=== PATIENT | male | born 1960 | race Caucasian/White ===

== ENCOUNTER 2017-07-27 08:51 | Day surgery (SDC) | payer BC ==
[~2017-07-27] VITALS: Ht 177.8 cm; Wt 88.0 kg
[~2017-07-27 08:51] MED LIST: AMIT25 PO; COMPLETE ALLERG PO; FISH OIL 1,2001 EAC1 PO; MIRT15 PO; SUPER B-COMPL400 MCG PO; VITAMIN D35000 UNIT PO
[2017-10-14] MEDS ORDERED: SUPER B-COMPL400 MCG PO (08:19)
[2017-10-14] MEDS ORDERED: VITAMIN D35000 UNIT PO (08:19)
[2017-10-14] MEDS ORDERED: Allergy Medicin25 MG PO (08:21)
== END 2017-07-27 11:19 | disposition home or self-care (01) ==
LOC: ORSCSDS 08:51
PROVIDERS: Internal Medicine Gastroenterology
PROC: 0DJD8ZZ Inspection of Lower Intestinal Tract, Via Natural or Artificial Opening Endoscopic (ICD-10-PCS; principal; 2017-07-27 10:00)
DX: Z86.010 Personal history of colon polyps (principal); K64.8 Other hemorrhoids; Z83.71 Family history of colonic polyps; Z79.82 Long term (current) use of aspirin

== ENCOUNTER 2017-10-18 06:14 | Day surgery (SDC) | payer BC ==
[~2017-10-18] VITALS: Ht 177.8 cm; Wt 88.7 kg
[~2017-10-18 06:14] MED LIST changes: +Allergy Medicin25 MG PO
== END 2017-10-18 10:18 | disposition home or self-care (01) ==
LOC: ORSCSDS 06:14
PROVIDERS: Orthopaedic Surgery
PROC: 0SBC4ZZ Excision of Right Knee Joint, Percutaneous Endoscopic Approach (ICD-10-PCS; principal; 2017-10-18 07:30)
DX: S83.241A Other tear of medial meniscus, current injury, right knee, initial encounter (principal); S83.281A Other tear of lateral meniscus, current injury, right knee, initial encounter
CPT/HCPCS: 93005; 93010; J0171; J0690; J2250; J2405; J3010; J7120

== ENCOUNTER 2019-05-18 08:32 | Day surgery (SDC) | payer BC ==
[~2019-05-18] VITALS: Ht 177.8 cm; Wt 87.0 kg
[~2019-05-18 08:32] MED LIST changes: +OMEP20ER PO
--- NOTE | 2019-05-18 09:41 | NUR ---
05/18/19 0941 [place] Joy History, Chart, Medications and Allergies reviewed before start of procedure.MONITOR INTACT WITH CONTINUOUS PULSE OXIMETRY AND INTERMITTENT BP.3-LEAD EKG REVIEWED WITH PHYSICIAN PRIOR TO START OF PROCEDURE.O2 VIA N/C INTACT THROUGHOUT SEDATION/PROCEDURE. Patient confirms NPO status and agrees with scheduled surgery.HURRICAINE SPRAY TO OROPHARYX.Bite Block Placed.Patient to ENDO 1.
--- NOTE | 2019-05-18 09:49 | NUR ---
Ambulatory in Day Surgery. History, Chart, Medications and Allergies reviewed before start of procedure. Lungs clear T/O to Auscultation. Patient confirms NPO status and agrees with scheduled surgery. Pre-Op teaching done. Pt verbalizes understanding. Patient States Post-Procedure ride home has been arranged.
--- NOTE | 2019-05-18 10:26 | NUR ---
"DAY SURGERY RN | DISCHARGE VSS. A/O. DENIES PAIN AND NAUSEA. NO ISSUES. DISCHARGE INSTRUCTIONS GIVEN TO PATIENT. PATIENT IS RIDE HOME. TAKEN IN WHEELCHAIR TO FRONT ENTRANCE BY VOLUNTEER."
== END 2019-05-18 23:15 | disposition home or self-care (01) ==
LOC: ORSCMMR 08:32 → ORD 09:30 → ORSCMMR 23:15
PROVIDERS: Internal Medicine Gastroenterology
PROC: 0DB68ZX Excision of Stomach, Via Natural or Artificial Opening Endoscopic, Diagnostic (ICD-10-PCS; principal; 2019-05-18 09:30)
PROC: 0DB48ZX Excision of Esophagogastric Junction, Via Natural or Artificial Opening Endoscopic, Diagnostic (ICD-10-PCS; principal; 2019-05-18 09:30)
PROC: 0DB98ZX Excision of Duodenum, Via Natural or Artificial Opening Endoscopic, Diagnostic (ICD-10-PCS; principal; 2019-05-18 09:30)
PROC: 0D758ZZ Dilation of Esophagus, Via Natural or Artificial Opening Endoscopic (ICD-10-PCS; principal; 2019-05-18 09:30)
DX: K21.9 Gastro-esophageal reflux disease without esophagitis (principal); R13.14 Dysphagia, pharyngoesophageal phase; R10.13 Epigastric pain; K44.9 Diaphragmatic hernia without obstruction or gangrene
CPT/HCPCS: 88305; 88342; C1726; J2704; J7120

== ENCOUNTER 2019-12-28 17:58 | Emergency (ER) | payer BC ==
[~2019-12-28] VITALS: Ht 177.8 cm; Wt 86.2 kg
== END 2019-12-28 18:20 | disposition left against medical advice (07) ==
LOC: ER 17:58
DX: T16.1XXA Foreign body in right ear, initial encounter (principal); Z88.8 Allergy status to other drugs, medicaments and biological substances
CPT/HCPCS: 99282

== ENCOUNTER 2020-08-12 06:19 | Day surgery (SDC) | payer BC ==
[~2020-08-12 06:19] MED LIST changes: +SILD50TA PO
[2020-12-26] MEDS ORDERED: Vitamin B Comple1 EA PO (11:13)
== END 2020-08-12 10:10 | disposition home or self-care (01) ==
LOC: ORSCSDS 06:19
PROVIDERS: Orthopaedic Surgery
PROC: 0LQ24ZZ Repair Left Shoulder Tendon, Percutaneous Endoscopic Approach (ICD-10-PCS; principal; 2020-08-12 07:30)
PROC: 0RBK4ZZ Excision of Left Shoulder Joint, Percutaneous Endoscopic Approach (ICD-10-PCS; principal; 2020-08-12 07:30)
PROC: 0RNK4ZZ Release Left Shoulder Joint, Percutaneous Endoscopic Approach (ICD-10-PCS; principal; 2020-08-12 07:30)
DX: M75.122 Complete rotator cuff tear or rupture of left shoulder, not specified as traumatic (principal); M75.42 Impingement syndrome of left shoulder; M75.52 Bursitis of left shoulder; S46.102A Unspecified injury of muscle, fascia and tendon of long head of biceps, left arm, initial encounter; S43.432A Superior glenoid labrum lesion of left shoulder, initial encounter
CPT/HCPCS: A9270; C1713; J0171; J0690; J0735; J1100; J1885; J2001; J2250; J2405; J2704; J2795; J3010; J7120

== ENCOUNTER 2021-01-02 10:18 | Day surgery (SDC) | payer BC ==
[~2021-01-02] VITALS: Ht 177.8 cm; Wt 87.5 kg
[~2021-01-02 10:18] MED LIST changes: +Vitamin B Comple1 EA PO
== END 2021-01-02 12:35 | disposition home or self-care (01) ==
LOC: ORSCSDS 10:18
PROVIDERS: Internal Medicine Gastroenterology
PROC: 0DBL8ZX Excision of Transverse Colon, Via Natural or Artificial Opening Endoscopic, Diagnostic (ICD-10-PCS; principal; 2021-01-02 11:30)
PROC: 0DBH8ZX Excision of Cecum, Via Natural or Artificial Opening Endoscopic, Diagnostic (ICD-10-PCS; principal; 2021-01-02 11:30)
DX: Z12.11 Encounter for screening for malignant neoplasm of colon (principal); D12.0 Benign neoplasm of cecum; D12.3 Benign neoplasm of transverse colon; K57.30 Diverticulosis of large intestine without perforation or abscess without bleeding; Z86.010 Personal history of colon polyps; Z83.71 Family history of colonic polyps
CPT/HCPCS: 88305; 93005; 93010; J2704; J7120

== ENCOUNTER 2022-01-14 08:51 | Day surgery (SDC) | payer BC ==
[~2022-01-14] VITALS: Ht 177.8 cm; Wt 89.7 kg
[~2022-01-14 08:51] MED LIST changes: +TESTOSTERONE60 GM TOP
[2022-01-14] MEDS ORDERED: THERA-D2000 UNIT PO (09:07)
[2022-01-14] MEDS ORDERED: Acerola C500 MG PO (09:07)
--- NOTE | 2022-01-14 14:44 | NUR ---
PT TO ROOM 219 FROM PACU. PT IS VERY SLEEPY.
--- NOTE | 2022-01-14 18:02 | NUR ---
SHIFT SUMMARY PT POD #0 FOR L TKA. CRISSY WRAP DRESSING IN PLACE, CDI. PT HAD SPINAL AND GENERAL ANESTHESIA AND WAS VERY NUMB POST OP. CURRENTLY THE PT CAN MOVE HIS FEET BUT UNABLE TO WIGGLE HIS TOES. TOLERATING PO INTAKE WELL. NO PAIN AT THIS TIME. VSS.
[2022-01-15 05:24] LABS: BASOPHILS ABSOLUTE AUTO 0.02 K/mm3 (0.00-0.23); BASOPHILS PERCENT AUTO 0 % (0-2); EOSINOPHILS PERCENT AUTO 0 % (0-6); Hematocrit 45.7 % (37.0-53.0); Hemoglobin 15.3 g/dL (13.5-17.5); IMMATURE GRAN ABSOLUTE AUTO 0.04 K/mm3 (0.00-0.10); IMMATURE GRAN PERCENT AUTO 0 % (0-1); LYMPHOCYTES ABSOLUTE AUTO 1.04 K/mm3 (0.84-5.20); LYMPHOCYTES PERCENT AUTO 7 % (21-46); MONOCYTES ABSOLUTE AUTO 1.05 K/mm3 (0.16-1.47); MONOCYTES PERCENT AUTO 7 % (4-13); Mean Corpuscular HGB 30.2 pg (26.0-34.0); Mean Corpuscular HGB Conc 33.5 g/dL (31.5-36.5); Mean Corpuscular Volume 90 fL (80-100); Mean Platelet Volume 9.7 fL (9.1-12.4); NEUTROPHILS ABSOLUTE AUTO 13.63 K/mm3 (1.96-9.15); NEUTROPHILS PERCENT AUTO 86 % (41-73); Platelet Count 335 K/mm3 (150-400); RDW Coefficient Variation 11.9 % (11.7-14.2); RDW Standard Deviation 39.1 fL (35.1-46.3); Red Blood Cell Count 5.06 M/mm3 (4.30-5.90); White Blood Cell Count 15.78 K/mm3 (4.00-11.30)
[2022-01-15 05:48] LABS: Bun/Creatinine Ratio 25.9 (12.0-20.0); Calcium, Blood 8.8 mg/dL (8.5-10.1); Creatinine, Blood 0.81 mg/dL (0.60-1.20); Magnesium, Blood 2.2 mg/dL (1.6-2.4); Potassium, Blood 4.2 mmol/L (3.5-5.5)
--- NOTE | 2022-01-15 06:28 | NUR ---
SUMMARY PT PAIN MANAGED WELL. PT HAS NO NEW ISSUES NOTED. PT VOIDING WELL AND AMBULATING. CALL LIGHT IN REACH.
[2022-01-15] MEDS ORDERED: OXYC5 PO (11:38)
[2022-01-15] MEDS ORDERED: ASPI81CH PO (11:38)
[2022-01-15] MEDS ORDERED: PROM25 PO (11:39)
[2022-01-15] MEDS ORDERED: SULTRIDS PO (11:39)
--- NOTE | 2022-01-15 12:11 | NUR ---
DISCHARGE PT PROVIDED WITH WRITTEN AND VERBAL DISCHARGE INSTRUCTIONS; HE REPORTED UNDERSTANDING. PRESCRIPTION CALLED TO PT'S PHARMACY BY HANNY VEGA. PT PROVIDED WITH CLEAN DRESSINGS. PT MEETING ALL GOALS PRIOR TO DISCHARGE. PT ESCORTED OUT AT 1210 BY IRASEMA BIRCH.
== END 2022-01-15 12:06 | disposition home or self-care (01) ==
LOC: ORSCMMR 08:51 → ORD 10:45 → SURS 14:20 → ORSCMMR 01-15 12:06 → SURS 01-15 12:06
PROVIDERS: Orthopaedic Surgery
PROC: 8E0YXBZ Computer Assisted Procedure of Lower Extremity (ICD-10-PCS; principal; 2022-01-14 10:45)
PROC: 0SRD0J9 Replacement of Left Knee Joint with Synthetic Substitute, Cemented, Open Approach (ICD-10-PCS; principal; 2022-01-14 10:45)
DX: M17.12 Unilateral primary osteoarthritis, left knee (principal); K21.9 Gastro-esophageal reflux disease without esophagitis; Z79.899 Other long term (current) drug therapy
CPT/HCPCS: 36415; 73560-LT; 80048; 83735; 85025; 97110; 97116-CQ; 97161; 97530; A9270; C1713; C1776; J0171; J0690; J0735; J1100; J1885; J2250; J2370; J2405; J2704; J2795; J3010; J3370; J7060; J7120

== ENCOUNTER 2023-11-15 09:49 | Day surgery (SDC) | payer BC ==
[~2023-11-15] VITALS: Ht 177.8 cm; Wt 89.7 kg
[~2023-11-15 09:49] MED LIST changes: +ACET500 PO; +ASPI81CH PO; +Acerola C500 MG PO; +Lactated Ringer's 1,000 ML IV ONE; +OXYC5 PO; +PROM25 PO; +Robaxin750 MG PO; +SULTRIDS PO; +THERA-D2000 UNIT PO; +propofoL 50 ML IV ONE
[2023-11-15] MEDS ORDERED: ACET80 PO (10:15)
[2023-11-15] MEDS ORDERED: Lactated Ringer's 1,000 ML IV ONE (11:06)
[2023-11-15 12:13] VITALS: BP 108/67
== END 2023-11-15 12:15 | disposition home or self-care (01) ==
LOC: ORSCSDS 09:49
PROVIDERS: Internal Medicine Gastroenterology
PROC: 0DBM8ZX Excision of Descending Colon, Via Natural or Artificial Opening Endoscopic, Diagnostic (ICD-10-PCS; principal; 2023-11-15 11:00)
DX: Z12.11 Encounter for screening for malignant neoplasm of colon (principal); Z86.010 Personal history of colon polyps; Z83.719 Family history of colon polyps, unspecified; D12.4 Benign neoplasm of descending colon; K57.30 Diverticulosis of large intestine without perforation or abscess without bleeding
CPT/HCPCS: 88305; J2704; J7120